=== PATIENT | female | born 1990 | race Two or more races ===

== ENCOUNTER → 2024-08-01 | Outpatient (CLI) | payer MEDICAID ==
[2024-08-01 16:21] LABS: Basophils # (auto) 0.1 10 ^3/uL (0-0.2); Basophils % (auto) 0.6 % (0.0-2.0); Eosinophils # (auto) 0.2 10 ^3/uL (0-0.8); Eosinophils % (auto) 1.8 % (0.0-7.0); Hematocrit 40.5 % (36.0-46.0); Lymphocytes # (auto) 3.5 10 ^3/uL (0.4-5.4); Lymphocytes % (auto) 38.9 % (10.0-50.0); Mean Corpuscular Hemoglobin 30.1 pg (28.0-32.0); Mean Corpuscular Hgb Conc. 34.5 g/dL (32.0-36.0); Mean Corpuscular Volume 87.2 fL (80.0-100.0); Monocytes # (auto) 0.6 10 ^3/uL (0-1.3); Monocytes % (auto) 6.3 % (0.0-12.0); Neutrophils # (auto) 4.8 10 ^3/uL (1.6-8.6); Neutrophils % (auto) 52.4 % (37.0-80.0); Nucleated Red Blood Cells % 0.4 %; Platelet Count (auto) 313 10^3/uL (140-450); Red Blood Cells 4.65 10^6/uL (4.0-5.20); Red Cell Distribution Width 13.3 % (11.8-14.3); White Blood Cell 9.1 10^3/uL (4.4-10.8)
[2024-08-01 16:34] LABS: Albumin 4.7 g/dL (3.2-4.8); Alkaline Phosphatase 87 U/L (46-116); Anion Gap 10 (5-15); Aspartate Aminotransferase < 8 U/L (13-40); Calcium 9.4 mg/dL (8.7-10.4); Carbon Dioxide 23 mmol/L (20-31); Chloride 104 mmol/L (98-107); Glucose 87 mg/dL (74-106); Potassium 3.5 mmol/L (3.5-5.1); Sodium 137 mmol/L (136-145)
[2024-08-01 16:35] LABS: Bilirubin, Total 0.3 mg/dL (0.2-1.0); Total Protein 7.9 g/dL (5.7-8.2)
[2024-08-01 16:36] LABS: Alanine Aminotransferase 9 U/L (7-40); BUN/Creatinine Ratio 9.3 (10.0-20.0); Blood Urea Nitrogen < 5 mg/dL (9-23)
[2024-08-01 16:39] LABS: Thyroid Stimulating Hormone 1.23 uIU/mL (0.55-4.78)
[2024-08-01 16:46] LABS: Beta HCG, Quantitative 23887.4 mIU/mL (1.5-4.2)
[2024-08-02 07:06] LABS: RPR Non Reactive (Non Reactive); Varicella Zoster IgG Antibody Reactive (Non Reactive)
[2024-08-02 22:07] LABS: Chlamydia Trachomatis, NAA Negative (Negative); Neisseria gonorrhoeae, NAA Negative (Negative)
== END | disposition home or self-care (01) ==
LOC: LAB 15:10
PROVIDERS: ATTEND Obstetrics & Gynecology
DX: Z11.3 Encounter for screening for infections with a predominantly sexual mode of transmission (principal)
CPT/HCPCS: 36415; 80053; 83036; 84439; 84443; 84702; 85025; 86592; 86703; 86762; 86787; 86850; 86900; 86901; 87086; 87340

== ENCOUNTER → 2024-12-24 | Outpatient (CLI) | payer MEDICAID ==
[2024-12-24 09:39] LABS: Basophils # (auto) 0 10 ^3/uL (0-0.2); Basophils % (auto) 0.5 % (0.0-2.0); Eosinophils # (auto) 0.1 10 ^3/uL (0-0.8); Eosinophils % (auto) 1.2 % (0.0-7.0); Hematocrit 35.2 % (36.0-46.0); Hemoglobin 12.1 g/dL (12.2-16.2); Lymphocytes # (auto) 2.8 10 ^3/uL (0.4-5.4); Lymphocytes % (auto) 33.9 % (10.0-50.0); Mean Corpuscular Hemoglobin 29.8 pg (28.0-32.0); Mean Corpuscular Hgb Conc. 34.3 g/dL (32.0-36.0); Mean Corpuscular Volume 86.8 fL (80.0-100.0); Monocytes # (auto) 0.6 10 ^3/uL (0-1.3); Monocytes % (auto) 6.8 % (0.0-12.0); Neutrophils # (auto) 4.8 10 ^3/uL (1.6-8.6); Neutrophils % (auto) 57.6 % (37.0-80.0); Platelet Count (auto) 287 10^3/uL (140-450); Red Blood Cells 4.06 10^6/uL (4.0-5.20); Red Cell Distribution Width 14.1 % (11.8-14.3); White Blood Cell 8.3 10^3/uL (4.4-10.8)
[2024-12-24 09:55] LABS: Albumin 4.1 g/dL (3.2-4.8); Alkaline Phosphatase 94 U/L (46-116); Anion Gap 9 (5-15); Calcium 9.2 mg/dL (8.7-10.4); Carbon Dioxide 24 mmol/L (20-31); Chloride 104 mmol/L (98-107); Glucose 91 mg/dL (74-106); Potassium 3.6 mmol/L (3.5-5.1); Sodium 137 mmol/L (136-145); Total Protein 6.9 g/dL (5.7-8.2)
[2024-12-24 09:56] LABS: Bilirubin, Total 0.3 mg/dL (0.2-1.0)
[2024-12-24 10:04] LABS: Alanine Aminotransferase < 9 U/L (7-40); Aspartate Aminotransferase 9 U/L (13-40); BUN/Creatinine Ratio 9.6 (10.0-20.0); Blood Urea Nitrogen < 5 mg/dL (9-23)
== END | disposition home or self-care (01) ==
LOC: LAB 09:14
DX: Z34.80 Encounter for supervision of other normal pregnancy, unspecified trimester (principal); Z3A.00 Weeks of gestation of pregnancy not specified
CPT/HCPCS: 36415; 80053; 82951; 83036; 85025; 86780; 86850; 86900; 86901

== ENCOUNTER 2025-01-19 19:43 | Inpatient (IN) | payer MEDICAID ==
[~2025-01-19] VITALS: Ht 154.9 cm; Wt 72.4 kg
--- NOTE | 2025-01-19 20:06 | ED.PDOC ---
SOB-HPI HPI Comments 34 y.o female presents to the ED for a chief complaint left lower leg cramping x 2 weeks ago associated with a lump x 3 days. Patient reports having a "charley horse" which then developed the lump and bruising to the lower leg. Patient also complains of SOB x 1 week and dizziness that is intermittent and presents spontaneously with or without exertion. Patient is 31 weeks gestation, POPCORN ATTENDANT history of , denies any abdominal pain, fluid discharge, or vaginal bleeding. Patient denies any fever, chills, cough, sick contacts, numbness or redness to her leg. Patient denies history of previous DVT, PE or tobacco use. Time Seen by MD: 19:51 Reviewed notes: Nurses Notes, Medications, Allergies Information Source: Patient Severity: Moderate Timing: Weeks Duration: Intermittent Context: At Rest PE Risk Factors: None History of: None Modifying Factors: Nothing Associated Signs and Symptoms: Leg Swelling Past Medical History PAST MEDICAL HISTORY: Denies Surgical History: Denies all surgeries POPCORN ATTENDANT History: No Pertinent POPCORN ATTENDANT History 3 Para 2 AB 0 Family History Family History: Reviewed,noncontributory to illness Social History Smoker: Non-Smoker Alcohol: Denies ETOH Use Drugs: Denies Drug Use Lives In: Home Constitutional: denies: chills, diaphoresis, fatigue, fever, malaise, sweats, weakness, others EENTM: denies: blurred vision, double vision, ear bleeding, ear discharge, ear drainage, ear pain, ear ringing, eye pain, eye redness, hearing loss, mouth pain, mouth swelling, nasal discharge, nose bleeding, nose congestion, nose pain, photophobia, tearing, throat pain, throat swelling, voice changes, others Respiratory: reports: SOB at rest, shortness of breath; denies: cough, hemoptysis, orthopnea, SOB with excertion, stridor, wheezing, others Cardiovascular: denies: chest pain, dizzy spells, diaphoresis, Dyspnea on exertion, edema, irregular heart beat, left arm pain, lightheadedness, palpitations, PND, syncope, others Gastrointestinal: denies: abdomen distended, abdominal pain, blood streaked bowels, constipated, diarrhea, dysphagia, difficulty swallowing, hematemesis, melena, nausea, poor appetite, poor fluid intake, rectal bleeding, rectal pain, vomiting, others Genitourinary: denies: abnormal vagina bleeding, burning, dyspareunia, dysuria, flank pain, frequency, hematuria, incontinence, pain, , vagina discharge, urgency, others Neurological: denies: dizziness, fainting, headache, left sided numbness, left sided weakness, numbness, paresthesia, pre-existing deficit, right sided numbness, right sided weakness, seizure, speech problems, tingling, tremors, weakness, others Musculoskeletal: reports: others (left lower leg swelling ); denies: back pain, gout, joint pain, joint swelling, muscle pain, muscle stiffness, neck pain Integumetry: denies: bruises, change in color, change in hair/nails, dryness, laceration, lesions, lumps, rash, wounds, others Allergic/Immunocompromised: denies: Difficulty Healing, Frequent Infections, Hives, Itching, others Hematologic/Lymphatic: denies: anemia, blood clots, easy bleeding, easy bruising, swollen glands, others Endocrine: denies: excessive hunger, excessive sweating, excessive thirst, excessive urination, flushing, intolerance to cold, intolerance to heat, unexplained weight gain, unexplained weight loss, others Psychiatric: denies: anxiety, bipolar disorder, depression, hopeless, panic disorder, schizophrenia, sleepless, suicidal, others All Other Systems: Reviewed and Negative Physical Exam General Appearance: No Apparent Distress HEENT: Other (Pupils and face symmetric. Moist mucous membranes.) Neck: Full Range of Motion, Normal Inspection Respiratory: Lungs Clear, No Accessory Muscle Use, No Respiratory Distress, Normal Breath Sounds Cardiovascular: No JVD, Regular Rate/Rhythm Breast Exam: Deferred Gastrointestinal: Non Tender, Soft Genitalia: Deferred Pelvic: Deferred Rectal: Deferred Extremities: Calf tenderness (Lower left), Leg edema (Trace left), Normal range of motion, Pedal edema (Trace left), Other (Prominent nontender superficial veins left lower extremity) Neurologic: Alert (Oriented x4), Normal Affect, Normal Mood Cerebellar Function: NOT DONE Reflexes: NOT DONE Skin: Dry, Normal Color, Warm Lymphatic: NOT DONE Was a procedure done? Was a procedure done?: No Differential Dx Differential Diagnosis: Asthma, Bronchitis, CHF, COPD, Hyperventilation, Myocardial infarction, Panic Attack, Pneumonia, Pulmonary Embolism, URI Comments Extremity DVT, superficial thrombophlebitis, among others X-Ray, Labs, Meds, VS Vital Signs Date Time Temp Pulse Resp B/P (MAP) Pulse Ox O2 Delivery O2 Flow Rate FiO2 01/19/25 20:10 20 97 0 01/19/25 20:04 98.0 7 20 133/70 (91) 97 98.0 Lab Test 01/19/25 20:45 01/19/25 20:05 Range/Units Troponin I High Sensitivity < 3 L < 3 L </=34 ng/L White Blood Count 8.8 4.4-10.8 10^3/uL Red Blood Count 4.30 4.0-5.20 10^6/uL Hemoglobin 12.4 12.2-16.2 g/dL Hematocrit 37.3 36.0-46.0 % Mean Corpuscular Volume 86.6 80.0-100.0 fL Mean Corpuscular Hemoglobin 28.9 28.0-32.0 pg Mean Corpuscular Hemoglobin Concent 33.4 32.0-36.0 g/dL Red Cell Distribution Width 13.9 11.8-14.3 % Platelet Count 275 140-450 10^3/uL Mean Platelet Volume 7.6 6.9-10.8 fL Neutrophils (%) (Auto) 54.7 37.0-80.0 % Lymphocytes (%) (Auto) 37.2 10.0-50.0 % Monocytes (%) (Auto) 6.7 0.0-12.0 % Eosinophils (%) (Auto) 0.9 0.0-7.0 % Basophils (%) (Auto) 0.5 0.0-2.0 % Neutrophils # (Auto) 4.8 1.6-8.6 10 ^3/uL Lymphocytes # (Auto) 3.3 0.4-5.4 10 ^3/uL Monocytes # (Auto) 0.6 0-1.3 10 ^3/uL Eosinophils # (Auto) 0.1 0-0.8 10 ^3/uL Basophils # (Auto) 0 0-0.2 10 ^3/uL Nucleated Red Blood Cells 0.1 % Prothrombin Time 9.9 9.3-11.8 sec Prothrombin Time INR 0.93 0.9-1.15 Activated Partial Thromboplast Time 27.6 24.5-34.5 SEC D-Dimer, Quantitative 1.23 H 0.0-0.49 mg/L FEU Sodium Level 139 136-145 mmol/L Potassium Level 4.0 3.5-5.1 mmol/L Chloride Level 106 98-107 mmol/L Carbon Dioxide Level 25 20-31 mmol/L Anion Gap 8 5-15 Blood Urea Nitrogen 10 9-23 mg/dL Creatinine 0.61 0.550-1.02 mg/dL Glomerular Filtration Rate Calc 121 >90 mL/min BUN/Creatinine Ratio 16.4 10.0-20.0 Serum Glucose 100 74-106 mg/dL Calcium Level 9.1 8.7-10.4 mg/dL B-Type Natriuretic Peptide 21.54 0-100 pg/mL PROCEDURE(s): LLDVT - LT Lower DVT REASON: pain,prominent veins and edema r/o dvt ORDER NUMBER(s): [id number], ACCESSION NUMBER(s): [id number] US LT Lower DVT HISTORY: pain,prominent veins and edema r/o dvt COMPARISON: None TECHNIQUE: Duplex Doppler evaluation of the deep venous system of the left lower extremity from the common femoral veins, superficial femoral vein, deep femoral vein, popliteal vein, and calf veins, including color Doppler and spectral/pulsed waveform analysis, was performed. FINDINGS: Left: - Common femoral vein: Compressible - Deep femoral vein: Compressible - Femoral vein: Compressible - Popliteal vein: Compressible - Trifurcation: Waveforms present - Posterior tibial vein: Waveforms present Other: Nothing IMPRESSION: 1. No left lower extremity deep venous thrombosis. X-Ray, Labs, Meds, VS Comment 34-year-old female G3, P2, currently 31 weeks with no significant past medical history complaining of left lower extremity prominent veins, pain and swelling associated with shortness of breath and dizziness Vitals unremarkable Exam remarkable for left lower extremity trace edema with prominent superficial veins and calf tenderness Rhythm strip independently interpreted by me: Sinus rhythm, rate 97, no ectopy. Chest x-ray CBC, basic metabolic panel, BNP and troponin unremarkable. D-dimer elevated at 1.23 Patient treated with the following in the ED: Tylenol 1 g p.o., 1 L 0.9 normal saline IV bolus Plan is to admit the patient for V/Q scan in the morning to rule out PE Time of Reevaluation: 20:06 Reevaluation 1ST: Unchanged Patient Education/Counseling: Diagnosis, Treatment, Prognosis Family Education/Counseling: No Family Present Departure 1 Departure Time of Disposition: 21:20 Impression: Primary Impression: Left leg pain Additional Impression: Shortness of breath Disposition: ADMITTED INPATIENT Admit to: Tele Condition: Guarded Critical Care Note Critical Care Time?: No Stability Stability form required: No Heart Score Heart Score: Heart Score Response (Comments) Value History N/A 0 EKG N/A 0 Age N/A 0 Risk Factors N/A 0 Troponin N/A 0 Total 0 I personally scribed for ASHLEY AMAYA MD ([email or web address]) on 01/19/25 at 20:06. Electronically submitted by Bhumika Cristina ([facility]CL[facility] FLINT). ASHLEY AMAYA MD January 19, 2025 20:06
[2025-01-19 20:27] LABS: Basophils # (auto) 0 10 ^3/uL (0-0.2); Basophils % (auto) 0.5 % (0.0-2.0); Eosinophils # (auto) 0.1 10 ^3/uL (0-0.8); Eosinophils % (auto) 0.9 % (0.0-7.0); Hematocrit 37.3 % (36.0-46.0); Hemoglobin 12.4 g/dL (12.2-16.2); Lymphocytes # (auto) 3.3 10 ^3/uL (0.4-5.4); Lymphocytes % (auto) 37.2 % (10.0-50.0); Mean Corpuscular Hemoglobin 28.9 pg (28.0-32.0); Mean Corpuscular Hgb Conc. 33.4 g/dL (32.0-36.0); Mean Corpuscular Volume 86.6 fL (80.0-100.0); Monocytes # (auto) 0.6 10 ^3/uL (0-1.3); Monocytes % (auto) 6.7 % (0.0-12.0); Neutrophils # (auto) 4.8 10 ^3/uL (1.6-8.6); Neutrophils % (auto) 54.7 % (37.0-80.0); Nucleated Red Blood Cells % 0.1 %; Platelet Count (auto) 275 10^3/uL (140-450); Red Cell Distribution Width 13.9 % (11.8-14.3); White Blood Cell 8.8 10^3/uL (4.4-10.8)
--- NOTE | 2025-01-19 20:32 | DVH ---
US LT Lower DVT HISTORY: pain,prominent veins and edema r/o dvt COMPARISON: None TECHNIQUE: Duplex Doppler evaluation of the deep venous system of the left lower extremity from the c ommon femoral veins, superficial femoral vein, deep femoral vein, popliteal vein, and calf veins, inc luding color Doppler and spectral/pulsed waveform analysis, was performed. FINDINGS: Left: - Common femoral vein: Compressible - Deep femoral vein: Compressible - Femoral vein: Compressible - Popliteal vein: Compressible - Trifurcation: Waveforms present - Posterior tibial vein: Waveforms present Other: Nothing IMPRESSION: 1. No left lower extremity deep venous thrombosis.
[2025-01-19 20:33] LABS: Chloride 106 mmol/L (98-107); Sodium 139 mmol/L (136-145)
[2025-01-19 20:34] LABS: Anion Gap 8 (5-15); Calcium 9.1 mg/dL (8.7-10.4); Carbon Dioxide 25 mmol/L (20-31)
[2025-01-19 20:39] LABS: BUN/Creatinine Ratio 16.4 (10.0-20.0); Blood Urea Nitrogen 10 mg/dL (9-23); Glucose 100 mg/dL (74-106)
[2025-01-19 20:44] LABS: INR 0.93 (0.9-1.15); Partial Thromboplastin Time 27.6 SEC (24.5-34.5); Prothrombin Time 9.9 sec (9.3-11.8)
--- NOTE | 2025-01-19 21:23 | DVH ---
CHEST RADIOGRAPH Indication: sob Technique: Single frontal view of the chest was obtained COMPARISON: None FINDINGS: Lines and Tubes: None Lungs: Clear Pleura: No effusion. No pneumothorax. Cardiomediastinal contours: Unremarkable IMPRESSION: No abnormality.
[2025-01-19] MEDS: ACETAMINOPHEN 500 MG TAB or CAP PO ONE (23:11)
[2025-01-19] MEDS: SODIUM CHLORIDE 0.9% 1,000 ML IV ONE (23:35)
[2025-01-20 00:35] VITALS: PULSE 89; O2SAT 99
[2025-01-20 01:14] LABS: Urine Bacteria MANY /hpf (None Seen); Urine Blood Negative /uL (Negative); Urine Clarity Clear (Clear); Urine Color Light-Yellow (Yellow); Urine Protein, UAD Negative (Negative); Urine Specific Gravity 1.011 (1.001-1.035); Urine Squamous Epithelial Cell FEW /hpf (<5); Urine Urobilinogen Normal (Negative); Urine WBC 1 /HPF (0-5); Urine pH 6.5 (5.0-9.0)
[2025-01-20] MEDS ORDERED: ONDANSETRON HCL 4 MG/2 ML VIAL IV PRN (04:00)
[2025-01-20] MEDS ORDERED: ACETAMINOPHEN 325 MG TAB PO PRN (04:00)
--- NOTE | 2025-01-20 04:12 | DVHHP2 ---
History of Present Illness Reason for Visit: Left calf tenderness History of Present Illness 34-year-old female presents for evaluation of left calf tenderness. Patient is 31 weeks . She reports having cramps to her left calf for the past two weeks. She states that three days ago she developed a couple of lumps with associated tenderness. She also reports it having shortness for breath intermittently for the past one-week. Currently denies any shortness for breath she is on room air saturating 98%. Denies any chest pain. Ultrasound of her left lower extremity his negative for DVT. Past Medical History Denies Past Surgical History Denies Family History Noncontributory Smoke: No ALCOHOL: none Drugs: None Lives: with Family Review of Systems Review of Systems Review of systems are currently negative otherwise addressed in HPI. Allergies: Coded Allergies: NO KNOWN ALLERGIES (Unverified , 01/19/25) Medications Current Medications Medications Dose Ordered Sig/Noe Route Start Time Stop Time Status Last Admin Dose Admin Ondansetron HCl 4 mg Q4HP PRN IV 01/20/25 04:00 Acetaminophen 650 mg Q6HP PRN PO 01/20/25 04:00 Exam Vital Signs Vital Signs Date Time Temp Pulse Resp B/P (MAP) Pulse Ox O2 Delivery O2 Flow Rate FiO2 01/20/25 02:30 98.3 77 19 98/56 (70) 98 98.3 01/20/25 00:35 Room Air* 0 21 Exam Gen: 4-year-old female in no apparent distress Skin: Warm, dry, normal color and texture, no rash. HEENT: Normocephalic atraumatic, mucous membranes moist and pink. Neck: Cervical and supraclavicular nodes normal without enlargement, trachea is midline, thyroid gland is normal without masses. Pulmonary: Clear to auscultation and percussion bilaterally. Cardiac: Regular rate and rhythm. No murmur Abdomen: Soft, nontender, nondistended, bowel sounds present all 4 quadrants, no guarding, no rigidity, no organomegaly. Extremities: No cyanosis, clubbing, no edema Neuro: Cranial nerves II through XII grossly intact, normal affect and speech, n o focal motor deficits. Labs/Xrays ORDERING PHYSICIAN: ASHLEY AMAYA MD PROCEDURE(s): CXRP - CHEST PORTABLE REASON: sob ORDER NUMBER(s): [id number], ACCESSION NUMBER(s): [id number] CHEST RADIOGRAPH Indication: sob Technique: Single frontal view of the chest was obtained COMPARISON: None FINDINGS: Lines and Tubes: None Lungs: Clear Pleura: No effusion. No pneumothorax. Cardiomediastinal contours: Unremarkable IMPRESSION: No abnormality. RING PHYSICIAN: ASHLEY AMAYA MD PROCEDURE(s): LLDVT - LT Lower DVT REASON: pain,prominent veins and edema r/o dvt ORDER NUMBER(s): [id number], ACCESSION NUMBER(s): [id number] US LT Lower DVT HISTORY: pain,prominent veins and edema r/o dvt COMPARISON: None TECHNIQUE: Duplex Doppler evaluation of the deep venous system of the left lower extremity from the common femoral veins, superficial femoral vein, deep femoral vein, popliteal vein, and calf veins, including color Doppler and spectral/pulsed waveform analysis, was performed. FINDINGS: Left: - Common femoral vein: Compressible - Deep femoral vein: Compressible - Femoral vein: Compressible - Popliteal vein: Compressible - Trifurcation: Waveforms present - Posterior tibial vein: Waveforms present Other: Nothing IMPRESSION: 1. No left lower extremity deep venous thrombosis. Labs Test 01/20/25 00:40 01/19/25 20:45 01/19/25 20:05 Range/Units Urine Color Light-yellow Yellow Urine Clarity Clear Clear Urine pH 6.5 5.0-9.0 Urine Specific [place] 1.011 1.001-1.035 Urine Protein Negative Negative Urine Ketones Negative Negative Urine Blood Negative Negative /uL Urine Nitrite Negative Negative Urine Bilirubin Negative Negative Urine Urobilinogen Normal Negative mg/dL Urine Leukocyte Esterase Negative Negative /uL Urine RBC None seen 0 - 4 /hpf Urine Microscopic WBC 1 0-5 /HPF Urine Squamous Epithelial Cells Few <5 /hpf Urine Bacteria Many H None Seen /hpf Urine Glucose Normal Normal mg/dL Troponin I High Sensitivity < 3 L </=34 ng/L White Blood Count 8.8 4.4-10.8 10^3/uL Red Blood Count 4.30 4.0-5.20 10^6/uL Hemoglobin 12.4 12.2-16.2 g/dL Hematocrit 37.3 36.0-46.0 % Mean Corpuscular Volume 86.6 80.0-100.0 fL Mean Corpuscular Hemoglobin 28.9 28.0-32.0 pg Mean Corpuscular Hemoglobin Concent 33.4 32.0-36.0 g/dL Red Cell Distribution Width 13.9 11.8-14.3 % Platelet Count 275 140-450 10^3/uL Mean Platelet Volume 7.6 6.9-10.8 fL Neutrophils (%) (Auto) 54.7 37.0-80.0 % Lymphocytes (%) (Auto) 37.2 10.0-50.0 % Monocytes (%) (Auto) 6.7 0.0-12.0 % Eosinophils (%) (Auto) 0.9 0.0-7.0 % Basophils (%) (Auto) 0.5 0.0-2.0 % Neutrophils # (Auto) 4.8 1.6-8.6 10 ^3/uL Lymphocytes # (Auto) 3.3 0.4-5.4 10 ^3/uL Monocytes # (Auto) 0.6 0-1.3 10 ^3/uL Eosinophils # (Auto) 0.1 0-0.8 10 ^3/uL Basophils # (Auto) 0 0-0.2 10 ^3/uL Nucleated Red Blood Cells 0.1 % Prothrombin Time 9.9 9.3-11.8 sec Prothrombin Time INR 0.93 0.9-1.15 Activated Partial Thromboplast Time 27.6 24.5-34.5 SEC D-Dimer, Quantitative 1.23 H 0.0-0.49 mg/L FEU Sodium Level 139 136-145 mmol/L Potassium Level 4.0 3.5-5.1 mmol/L Chloride Level 106 98-107 mmol/L Carbon Dioxide Level 25 20-31 mmol/L Anion Gap 8 5-15 Blood Urea Nitrogen 10 9-23 mg/dL Creatinine 0.61 0.550-1.02 mg/dL Glomerular Filtration Rate Calc 121 >90 mL/min BUN/Creatinine Ratio 16.4 10.0-20.0 Serum Glucose 100 74-106 mg/dL Calcium Level 9.1 8.7-10.4 mg/dL B-Type Natriuretic Peptide 21.54 0-100 pg/mL Assessment/Plan Assessment/Plan Assessment Acute respiratory distress Left calf tenderness Plan Admit the patient to [facility] to the hospitalist ER provider Dr. FELECIA Hayes once the patient admitted for a V/Q scan to rule out pulmonary embolism. Plan discussed with: Patient My Orders Orders - AMARJIT ELIZALDE Procedure Category Date Status Time Nm Vq Scan NM 01/20/25 Logged 03:59 Regular Diet DIET 01/20/25 Transmitted Breakfast Admit ADMIT 01/20/25 Transmitted 03:59 Ondansetron Hcl PHA 01/20/25 In Process (Zofran) 04:00 Condition: Stable CHILO 01/20/25 In Process 03:59 Acetaminophen Tablet PHA 01/20/25 In Process (Tylenol Tablet) 04:00 Bedrest With Bathroom CHILO 01/20/25 In Process Privileg 03:59 Date of Service: January 20, 2025 Billing Provider: AMARJIT ELIZALDE Common Visit Codes: [id number] INP/OBS CARE (MOD) AMARJIT ELIZALDE January 20, 2025 04:12
[2025-01-20 07:30] VITALS: PULSE 78; RESP 19; O2SAT 99
[2025-01-20 07:31] VITALS: PULSE 78; RESP 18; TEMP 98.8; O2SAT 98
[2025-01-20] MEDS ORDERED: PREN-96 PO (07:49)
[2025-01-20 12:00] VITALS: BP 102/63; RESP 22; TEMP 98.3; O2SAT 98
[2025-01-20 12:19] VITALS: PULSE 90
--- NOTE | 2025-01-20 13:00 | DVHDS2 ---
Discharge Summary Date of Admission January 20, 2025 at 03:59 Date of Discharge: January 20, 2025 Admitting Diagnosis Acute respiratory distress Labs/Diagnostic Data: Laboratory Results Test 01/20/25 00:40 01/19/25 20:45 01/19/25 20:05 Urine Color Light-yellow (Yellow) Urine Clarity Clear (Clear) Urine pH 6.5 (5.0-9.0) Urine Specific [place] 1.011 (1.001-1.035) Urine Protein Negative (Negative) Urine Ketones Negative (Negative) Urine Blood Negative /uL (Negative) Urine Nitrite Negative (Negative) Urine Bilirubin Negative (Negative) Urine Urobilinogen Normal mg/dL (Negative) Urine Leukocyte Esterase Negative /uL (Negative) Urine RBC None seen /hpf (0 - 4) Urine Microscopic WBC 1 /HPF (0-5) Urine Squamous Epithelial Cells Few /hpf (<5) Urine Bacteria Many /hpf (None Seen) Urine Glucose Normal mg/dL (Normal) Troponin I High Sensitivity < 3 ng/L (</=34) White Blood Count 8.8 10^3/uL (4.4-10.8) Red Blood Count 4.30 10^6/uL (4.0-5.20) Hemoglobin 12.4 g/dL (12.2-16.2) Hematocrit 37.3 % (36.0-46.0) Mean Corpuscular Volume 86.6 fL (80.0-100.0) Mean Corpuscular Hemoglobin 28.9 pg (28.0-32.0) Mean Corpuscular Hemoglobin Concent 33.4 g/dL (32.0-36.0) Red Cell Distribution Width 13.9 % (11.8-14.3) Platelet Count 275 10^3/uL (140-450) Mean Platelet Volume 7.6 fL (6.9-10.8) Neutrophils (%) (Auto) 54.7 % (37.0-80.0) Lymphocytes (%) (Auto) 37.2 % (10.0-50.0) Monocytes (%) (Auto) 6.7 % (0.0-12.0) Eosinophils (%) (Auto) 0.9 % (0.0-7.0) Basophils (%) (Auto) 0.5 % (0.0-2.0) Neutrophils # (Auto) 4.8 10 ^3/uL (1.6-8.6) Lymphocytes # (Auto) 3.3 10 ^3/uL (0.4-5.4) Monocytes # (Auto) 0.6 10 ^3/uL (0-1.3) Eosinophils # (Auto) 0.1 10 ^3/uL (0-0.8) Basophils # (Auto) 0 10 ^3/uL (0-0.2) Nucleated Red Blood Cells 0.1 % Prothrombin Time 9.9 sec (9.3-11.8) Prothrombin Time INR 0.93 (0.9-1.15) Activated Partial Thromboplast Time 27.6 SEC (24.5-34.5) D-Dimer, Quantitative 1.23 mg/L FEU (0.0-0.49) Sodium Level 139 mmol/L (136-145) Potassium Level 4.0 mmol/L (3.5-5.1) Chloride Level 106 mmol/L (98-107) Carbon Dioxide Level 25 mmol/L (20-31) Anion Gap 8 (5-15) Blood Urea Nitrogen 10 mg/dL (9-23) Creatinine 0.61 mg/dL (0.550-1.02) Glomerular Filtration Rate Calc 121 mL/min (>90) BUN/Creatinine Ratio 16.4 (10.0-20.0) Serum Glucose 100 mg/dL (74-106) Calcium Level 9.1 mg/dL (8.7-10.4) B-Type Natriuretic Peptide 21.54 pg/mL (0-100) Other Laboratory Tests 01/19/25 20:05 Brief Hx & Hospital Course: History of Present Illness 34-year-old female presents for evaluation of left calf tenderness. Patient is 31 weeks . She reports having cramps to her left calf for the past two weeks. She states that three days ago she developed a couple of lumps with associated tenderness. She also reports it having shortness for breath intermittently for the past one-week. Currently denies any shortness for breath she is on room air saturating 98%. Denies any chest pain. Ultrasound of her left lower extremity his negative for DVT. Course of hospitalization: Patient was noted to have elevated D-dimer. Patient had V/Q scan, pending. Patient was decided to leave against medical advice despite discussing with the patient findings of her lab work, and associated symptoms, in addition to risk factors for pulmonary embolism. Despite these efforts, patient was decided to leave against medical advice. General: Alert and Oriented x3. No acute distress. Well-nourished. Eyes: EOMI. Anicteric. HENT: Moist mucous membranes. Lungs: Clear to auscultation bilaterally. No accessory muscle use. Cardiovascular: Regular rate and rhythm. No murmur. No JVD. Abdomen: Soft, non-tender and non-distended. No palpable masses. Extremities: No edema. Non-tender. Skin: No rashes or lesions. Warm. Neurologic: No focal neurological deficits. CN II-XII grossly intact, but not individually tested. Psychiatric: Cooperative. Appropriate mood and affect. Condition at Discharge: Undetermined Final Diagnosis/Problems List Rule out pulmonary embolism Discharge Disposition: AMA Discharge Instruct/Medications Diet: Regular 36 Discharge Statement: "Patient was advised to return to the ER or call 911 if any headaches, dizziness, shortness of breath, chest pain, abdominal pain, bleeding, fevers, or worsening of medical condition. Patient was counseled about treatment plan, medications, possible side effects, patientverbalized understanding. All questions were answered to the best of my ability. This discharge took greater then 30 minutes in planning, reviewing documentation, counseling the patient, and discussing with other team members." ASSESSMENT ASSESSMENT Assessment Date of Service: January 20, 2025 Billing Provider: AZUCENA MCKENZIE NP Common Visit Codes: [id number] DISCH DAY >30min AZUCENA MCKENZIE NP January 20, 2025 13:00
== END 2025-01-20 12:40 | disposition left against medical advice (07) | DRG 566 ==
LOC: ER 19:43 → OVERFLOW 01-20 03:59
PROVIDERS: ADMIT Nurse Practitioner Acute Care; ATTEND Nurse Practitioner Acute Care
DX: O88.213 Thromboembolism in pregnancy, third trimester (principal); I26.99 Other pulmonary embolism without acute cor pulmonale; Z53.29 Procedure and treatment not carried out because of patient's decision for other reasons; Z3A.31 31 weeks gestation of pregnancy
CPT/HCPCS: 36415; 71045; 80048; 81001; 83880; 84484; 85025; 85379; 85610; 85730; 93971; 96360; G0378

== ENCOUNTER 2025-01-22 15:40 | Observation (INO) | payer MEDICAID ==
[~2025-01-22 15:40] MED LIST changes: -ZOFR4T PO
[2025-01-22 16:27] LABS: Basophils # (auto) 0 10 ^3/uL (0-0.2); Basophils % (auto) 0.6 % (0.0-2.0); Eosinophils # (auto) 0.1 10 ^3/uL (0-0.8); Eosinophils % (auto) 0.8 % (0.0-7.0); Hematocrit 35.2 % (36.0-46.0); Lymphocytes # (auto) 2.9 10 ^3/uL (0.4-5.4); Lymphocytes % (auto) 32.7 % (10.0-50.0); Mean Corpuscular Hemoglobin 29.4 pg (28.0-32.0); Mean Corpuscular Hgb Conc. 34.1 g/dL (32.0-36.0); Mean Corpuscular Volume 86.2 fL (80.0-100.0); Monocytes # (auto) 0.6 10 ^3/uL (0-1.3); Monocytes % (auto) 6.7 % (0.0-12.0); Neutrophils # (auto) 5.2 10 ^3/uL (1.6-8.6); Neutrophils % (auto) 59.2 % (37.0-80.0); Nucleated Red Blood Cells % 0.1 %; Platelet Count (auto) 238 10^3/uL (140-450); Red Blood Cells 4.09 10^6/uL (4.0-5.20); Red Cell Distribution Width 13.8 % (11.8-14.3); White Blood Cell 8.8 10^3/uL (4.4-10.8)
[2025-01-22 16:41] LABS: Albumin 3.9 g/dL (3.2-4.8); Alkaline Phosphatase 104 U/L (46-116); Anion Gap 10 (5-15); Carbon Dioxide 23 mmol/L (20-31); Chloride 106 mmol/L (98-107); Glucose 77 mg/dL (74-106); Potassium 3.5 mmol/L (3.5-5.1); Sodium 139 mmol/L (136-145); Total Protein 6.8 g/dL (5.7-8.2)
[2025-01-22 16:50] LABS: Alanine Aminotransferase < 9 U/L (7-40); Aspartate Aminotransferase 9 U/L (13-40); BUN/Creatinine Ratio 10.4 (10.0-20.0); Bilirubin, Total 0.3 mg/dL (0.2-1.0); Blood Urea Nitrogen < 5 mg/dL (9-23)
[2025-01-22] MEDS ORDERED: ZOFR4T PO (17:08)
--- NOTE | 2025-01-22 17:15 | DVH ---
Left lower extremity venous duplex Clinical History: Left Leg swelling Comparison: US LT LOWER DVT on DOS: 01/19/25 Findings: Duplex Doppler evaluation of the deep venous system of the left lower extremity from the common femor al vein to the popliteal vein including color Doppler and spectral/pulsed waveform analysis was perfo rmed. The common femoral vein demonstrates appropriate compressibility and waveform variability. There is compressibility/patency of the great saphenous vein at the proximal thigh. The femoral vein demonstrates appropriate compressibility and waveform variability. The deep femoral vein demonstrates appropriate compressibility and waveform variability. The popliteal vein demonstrates appropriate compressibility and waveform variability. There is normal compressibility at the tibioperoneal trunk. Impression: No left femoropopliteal venous thrombosis. If clinical concern/symptoms persist or worsen, short-interval follow-up study is suggested.
--- NOTE | 2025-01-22 17:18 | DVH ---
BIOPHYSICAL PROFILE HISTORY: Cholestasis TECHNIQUE: Multiple transabdominal real-time grayscale sonographic images through the gravid uterus of the fetus with duplex Doppler color flow and M-mode spectral analysis FINDINGS: BIOPHYSICAL PROFILE: breathing score: 2 movement score: 2 tone score: 2 Quantitative SHERLY score: 2 (SHERLY: 09/30/2023 Cm.) Total score: 0 8/0 8 The cervix not provided Single live fetus in cephalic presentation. heart rate 145.29 beats per minute. Grade 2 with fundal placenta without previa or abruption Single live fetus at 32 weeks 1 day Biophysical profile score 0 8 ovary 0 8 corresponding to an BRUCE of 03/18/2025 Estimated weight not provided IMPRESSION: 1. Biophysical profile score: 0 8/0 8
--- NOTE | 2025-01-22 18:00 | DVHDS2 ---
Physician Discharge Progress N Final Diagnosis: testing for rule out cholestasis Secondary Diagnosis: ruled out DVT Operations or Procedures: Operations or Procedures S: 34yo IUP@32.1wks, pt was sent down from OB office by Yodit PARKS for itching on her abdomen/arms/legs and varicose veins on her left lower leg. Denies itching in her palms and soles of feet. Denies UCs/LOF/VB/JUAREZ/vision changes/RUQ pain. Endorses +FM. O: VSS NST reactive BPP wnl No rash noted by RN Redness noted on left lower leg RN Bile acid labs drawn outpatient Laboratory Tests Test 01/22/25 16:10 Range/Units White Blood Count 8.8 4.4-10.8 10^3/uL Red Blood Count 4.09 4.0-5.20 10^6/uL Hemoglobin 12.0 L 12.2-16.2 g/dL Hematocrit 35.2 L 36.0-46.0 % Mean Corpuscular Volume 86.2 80.0-100.0 fL Mean Corpuscular Hemoglobin 29.4 28.0-32.0 pg Mean Corpuscular Hemoglobin Concent 34.1 32.0-36.0 g/dL Red Cell Distribution Width 13.8 11.8-14.3 % Platelet Count 238 140-450 10^3/uL Mean Platelet Volume 7.2 6.9-10.8 fL Neutrophils (%) (Auto) 59.2 37.0-80.0 % Lymphocytes (%) (Auto) 32.7 10.0-50.0 % Monocytes (%) (Auto) 6.7 0.0-12.0 % Eosinophils (%) (Auto) 0.8 0.0-7.0 % Basophils (%) (Auto) 0.6 0.0-2.0 % Neutrophils # (Auto) 5.2 1.6-8.6 10 ^3/uL Lymphocytes # (Auto) 2.9 0.4-5.4 10 ^3/uL Monocytes # (Auto) 0.6 0-1.3 10 ^3/uL Eosinophils # (Auto) 0.1 0-0.8 10 ^3/uL Basophils # (Auto) 0 0-0.2 10 ^3/uL Nucleated Red Blood Cells 0.1 % Sodium Level 139 136-145 mmol/L Potassium Level 3.5 3.5-5.1 mmol/L Chloride Level 106 98-107 mmol/L Carbon Dioxide Level 23 20-31 mmol/L Anion Gap 10 5-15 Blood Urea Nitrogen < 5 L 9-23 mg/dL Creatinine 0.48 L 0.550-1.02 mg/dL Glomerular Filtration Rate Calc 128 >90 mL/min BUN/Creatinine Ratio 10.4 10.0-20.0 Serum Glucose 77 74-106 mg/dL Calcium Level 9.0 8.7-10.4 mg/dL Total Bilirubin 0.3 0.2-1.0 mg/dL Aspartate Amino Transferase (AST) 9 L 13-40 U/L Alanine Aminotransferase (ALT) < 9 7-40 U/L Alkaline Phosphatase 104 46-116 U/L Total Protein 6.8 5.7-8.2 g/dL Albumin 3.9 3.2-4.8 g/dL A: 34yo IUP@32.1wks Ruling out cholestasis (pending bile acids) ruled out DVT in LLE P: D/C home [facility]/PTL precautions reviewed Dr. Marlow consulted, pt to see Dr. Marlow for visit on monday on 01/24/25 Other Interventions Other Interventions [place] [address] Ph: [phone] DIAGNOSTIC IMAGING Diagnostic Imaging Report : [id number] Signed PATIENT: ALVERTO WILEY JACCT: [id number] UNIT: [id number] : 1990 LOC: [facility] ROOM / BED: [facility] / A AGE / SEX: 34 / F ADM STATUS: ADM IN SERVICE [id number] ORDERING PHYSICIAN: LESLIE MARLOW DO PROCEDURE(s): LLDVT - LT Lower DVT REASON: Left Leg swelling ORDER NUMBER(s): [id number], ACCESSION NUMBER(s): [id number] Left lower extremity venous duplex Clinical History: Left Leg swelling Comparison: US LT LOWER DVT on DOS: 01/19/25 Findings: Duplex Doppler evaluation of the deep venous system of the left lower extremity from the common femoral vein to the popliteal vein including color Doppler and spectral/pulsed waveform analysis was performed. The common femoral vein demonstrates appropriate compressibility and waveform variability. There is compressibility/patency of the great saphenous vein at the proximal thigh. The femoral vein demonstrates appropriate compressibility and waveform variabi lity. The deep femoral vein demonstrates appropriate compressibility and waveform variability. The popliteal vein demonstrates appropriate compressibility and waveform variability. There is normal compressibility at the tibioperoneal trunk. Impression: No left femoropopliteal venous thrombosis. If clinical concern/symptoms persist or worsen, short-interval follow-up study is suggested. ATED BY: WALT MORSE MD DICTATED DATE/TIME: 01/22/251712 SIGNED BY: WALT MORSE MD SIGNED DATE/TIME: 01/22/251712 CC: Condition on Discharge: Stable Disposition: Home Discharge Instructions: Diet: Regular Activity: No Restrictions, As Tolerated Medications: see med list Follow Up Care: Specialist: f/u in 1wk Discharge Statement: "Patient was advised to return to the ER or call 911 if any headaches, dizziness, shortness of breath, chest pain, abdominal pain, bleeding, fevers, or worsening of medical condition. Patient was counseled about treatment plan, medications, possible side effects, patientverbalized understanding. All questions were answered to the best of my ability. This discharge took greater then 30 minutes in planning, reviewing documentation, counseling the patient, and discussing with other team members." Visit Coding OBGYN Date of Service: January 22, 2025 Billing Provider: JESSE ARTHUR CNM SIGN MANUFACTURER Common Visit Codes: 99623-IWISHEM OBS CARE (HIGH) SIGN MANUFACTURER Procedure Codes: 14871-80- NON-STRESS TEST JESSE ARTHUR CNM January 22, 2025 18:00
== END 2025-01-22 17:59 | disposition home or self-care (01) ==
LOC: LDRP 15:40 → UNDOADMOB 15:40 → LDRP 15:53
PROVIDERS: ADMIT Obstetrics & Gynecology; ATTEND Obstetrics & Gynecology
DX: O26.893 Other specified pregnancy related conditions, third trimester (principal); L29.9 Pruritus, unspecified; R10.10 Upper abdominal pain, unspecified; O99.413 Diseases of the circulatory system complicating pregnancy, third trimester; I83.92 Asymptomatic varicose veins of left lower extremity; O99.891 Other specified diseases and conditions complicating pregnancy; M79.89 Other specified soft tissue disorders; Z3A.32 32 weeks gestation of pregnancy; Z79.899 Other long term (current) drug therapy
CPT/HCPCS: 36415; 59025; 76819; 80053; 81002; 82948; 85025; 93971; G0378

== ENCOUNTER → 2025-01-22 | Outpatient (CLI) | payer MEDICAID ==
[~2025-01-22] MED LIST: PREN-96 PO; ZOFR4T PO
[2025-01-22 15:21] LABS: Basophils # (auto) 0 10 ^3/uL (0-0.2); Basophils % (auto) 0.4 % (0.0-2.0); Eosinophils # (auto) 0.1 10 ^3/uL (0-0.8); Eosinophils % (auto) 0.7 % (0.0-7.0); Hematocrit 37.4 % (36.0-46.0); Hemoglobin 12.5 g/dL (12.2-16.2); Lymphocytes # (auto) 2.6 10 ^3/uL (0.4-5.4); Mean Corpuscular Hemoglobin 28.9 pg (28.0-32.0); Mean Corpuscular Hgb Conc. 33.4 g/dL (32.0-36.0); Mean Corpuscular Volume 86.4 fL (80.0-100.0); Monocytes # (auto) 0.5 10 ^3/uL (0-1.3); Monocytes % (auto) 5.9 % (0.0-12.0); Neutrophils # (auto) 5.4 10 ^3/uL (1.6-8.6); Nucleated Red Blood Cells % 0.1 %; Platelet Count (auto) 256 10^3/uL (140-450); Red Blood Cells 4.33 10^6/uL (4.0-5.20); Red Cell Distribution Width 13.5 % (11.8-14.3); White Blood Cell 8.5 10^3/uL (4.4-10.8)
[2025-01-22 15:59] LABS: Albumin 4.2 g/dL (3.2-4.8); Alkaline Phosphatase 104 U/L (46-116); Anion Gap 9 (5-15); Calcium 8.7 mg/dL (8.7-10.4); Carbon Dioxide 25 mmol/L (20-31); Chloride 105 mmol/L (98-107); Glucose 79 mg/dL (74-106); Potassium 3.7 mmol/L (3.5-5.1); Sodium 139 mmol/L (136-145); Total Protein 7.1 g/dL (5.7-8.2); Uric Acid 3.4 mg/dL (3.1-7.8)
[2025-01-22 16:05] LABS: Alanine Aminotransferase < 9 U/L (7-40); Aspartate Aminotransferase 9 U/L (13-40); BUN/Creatinine Ratio 10.6 (10.0-20.0); Bilirubin, Total 0.2 mg/dL (0.2-1.0); Blood Urea Nitrogen < 5 mg/dL (9-23)
== END | disposition home or self-care (01) ==
LOC: LAB 14:46
DX: O26.643 Intrahepatic cholestasis of pregnancy, third trimester (principal); Z3A.31 31 weeks gestation of pregnancy
CPT/HCPCS: 36415; 80053; 84550; 85025

== ENCOUNTER 2025-01-28 04:36 | Observation (INO) | payer MEDICAID ==
[~2025-01-28] VITALS: Ht 157.5 cm; Wt 72.6 kg
[~2025-01-28 04:36] MED LIST changes: +ZOFR4T PO
--- NOTE | 2025-01-30 15:28 | DVH ---
BIOPHYSICAL PROFILE HISTORY: caity TECHNIQUE: Multiple real-time grayscale sonographic images through the gravid uterus of the fetus wi th duplex Doppler color flow. FINDINGS: BIOPHYSICAL PROFILE: breathing score: 2 movement score: 2 tone score: 2 Quantitative SHERLY score: 2 Total score: 8 out of 8 Placenta fundal location. Placental lakes noted. heart rate 156 beats per minute. SHERLY 12.3 cm. lie is cephalic IMPRESSION: 1. Biophysical profile score: 8 out of 8
[2025-01-30] MEDS: TERBUTALINE SULFATE 1 MG/ML 1ML VIAL SC SCH (16:34)
--- NOTE | 2025-01-31 16:04 | DVHDS2 ---
Physician Discharge Progress N Final Diagnosis: cholestasis of preg 33wks Operations or Procedures: Operations or Procedures nst reactive reviwed Condition on Discharge: Good Disposition: Home Discharge Instructions: Diet: Regular Activity: No Restrictions, As Tolerated Medications: na Follow Up Care: Specialist: 3d Discharge Statement: "Patient was advised to return to the ER or call 911 if any headaches, dizziness, shortness of breath, chest pain, abdominal pain, bleeding, fevers, or worsening of medical condition. Patient was counseled about treatment plan, medications, possible side effects, patientverbalized understanding. All questions were answered to the best of my ability. This discharge took greater then 30 minutes in planning, reviewing documentation, counseling the patient, and discussing with other team members." Visit Coding OBGYN Date of Service: January 30, 2025 Billing Provider: LESLIE UNDERWOOD DO SPINDLE SANDER Common Visit Codes: 15587-[id number] OBS CARE (HIGH) SPINDLE SANDER Procedure Codes: 37778-89- NON-STRESS TEST LESLIE UNDERWOOD DO January 31, 2025 16:04
== END 2025-01-30 18:07 | disposition home or self-care (01) ==
LOC: UNDOADMOB 01-30 14:13 → LDRP 01-30 14:13
PROVIDERS: ADMIT Obstetrics & Gynecology; ATTEND Obstetrics & Gynecology
DX: O26.643 Intrahepatic cholestasis of pregnancy, third trimester (principal); K83.1 Obstruction of bile duct; Z3A.33 33 weeks gestation of pregnancy; Z79.899 Other long term (current) drug therapy; Z98.890 Other specified postprocedural states
CPT/HCPCS: 59025; 76819; 81002; 94760; 96372; G0378; J3105

== ENCOUNTER 2025-02-06 06:38 | Observation (INO) | payer MEDICAID ==
[2025-02-14] MEDS ORDERED: NIFE10CA52 PO (09:45)
--- NOTE | 2025-02-14 10:00 | DVH ---
BIOPHYSICAL PROFILE HISTORY: ALBA Comparison Study: US BIOPHYSICAL PROFILE on DOS: 01/30/25, US BIOPHYSICAL PROFILE on DOS: 01/22/25 TECHNIQUE: Multiple real-time grayscale sonographic images through the gravid uterus of the fetus wi th duplex Doppler color flow and M-mode spectral analysis FINDINGS: BIOPHYSICAL PROFILE: breathing score: 2 movement score: 2 tone score: 2 Quantitative SHERLY score: 2 (SHERLY: 12.1 Cm.) Total score: 8 The cervix is closed and measures 3.9 cm. Single live fetus in cephalic presentation. heart rate 131 beats per minute. Grade 1, fundal placenta without previa or abruption IMPRESSION: Biophysical profile score: 8
[2025-02-15] MEDS ORDERED: NIFE10CA52 PO (03:32)
== END 2025-02-14 10:21 | disposition home or self-care (01) ==
LOC: LDRP 02-14 08:40 → UNDOADMOB 02-14 08:40 → LDRP 02-14 08:43
PROVIDERS: ADMIT Obstetrics & Gynecology; ATTEND Obstetrics & Gynecology
DX: O60.03 Preterm labor without delivery, third trimester (principal); Z3A.35 35 weeks gestation of pregnancy; Z79.899 Other long term (current) drug therapy; Z98.890 Other specified postprocedural states
CPT/HCPCS: 59025; 76817; 76819; 81002; 94760; G0378

== ENCOUNTER 2025-02-15 00:19 | Observation (INO) | payer MEDICAID ==
[~2025-02-15] VITALS: Ht 154.9 cm; Wt 72.6 kg
[~2025-02-15 00:19] MED LIST changes: +NIFE10CA52 PO
[2025-02-15] MEDS: TERBUTALINE SULFATE 1 MG/ML 1ML VIAL SC SCH (01:25)
--- NOTE | 2025-02-15 03:15 | DVHDS2 ---
Physician Discharge Progress N Final Diagnosis: PTL 35WKS Operations or Procedures: Operations or Procedures NST REACTIVE REVIWED Condition on Discharge: Good Disposition: Home Discharge Instructions: Diet: Regular Activity: Light activity Medications: PROCARDIA Follow Up Care: Specialist: 1W Discharge Statement: "Patient was advised to return to the ER or call 911 if any headaches, dizziness, shortness of breath, chest pain, abdominal pain, bleeding, fevers, or worsening of medical condition. Patient was counseled about treatment plan, medications, possible side effects, patientverbalized understanding. All questions were answered to the best of my ability. This discharge took greater then 30 minutes in planning, reviewing documentation, counseling the patient, and discussing with other team members." Visit Coding OBGYN Date of Service: February 15, 2025 Billing Provider: LESLIE UNDERWOOD DO WAX BLEACHER Common Visit Codes: 01278-EACWAFD OBS CARE (HIGH) WAX BLEACHER Procedure Codes: 62132-48- NON-STRESS TEST LESLIE UNDERWOOD DO February 15, 2025 03:15
[2025-02-15] MEDS ORDERED: NIFE10CA52 PO (03:32)
== END 2025-02-15 03:50 | disposition home or self-care (01) ==
LOC: LDRP 00:19
PROVIDERS: ADMIT Obstetrics & Gynecology; ATTEND Obstetrics & Gynecology
DX: O60.03 Preterm labor without delivery, third trimester (principal); Z3A.35 35 weeks gestation of pregnancy; Z79.899 Other long term (current) drug therapy; Z98.890 Other specified postprocedural states
CPT/HCPCS: 59025; 81002; 94760; 96372; G0378; J3105